=== PATIENT | female | born 1935 | race African-American/Black ===

== ENCOUNTER 2022-07-18 19:17 | Inpatient (IN) | payer BC, MEDICARE ==
[~2022-07-18] VITALS: Ht 162.6 cm; Wt 60.1 kg
[2022-07-18] MEDS: INSULIN REGULAR 100U/100ML PMX 100 ML IV SCH (01:15)
[2022-07-18] MEDS ORDERED: SODIUM CHLORIDE 0.9% 1,000 ML IV ONE ×2 (20:00→22:45)
[2022-07-18 20:25] LABS: HEMATOCRIT. 47.6 % (36.0-48.0); HEMOGLOBIN. 15.2 g/dL (12.0-16.0); MEAN CORPUSCULAR HEMOGLOBIN 31.1 pg (28.0-32.0); MEAN CORPUSCULAR VOLUME 97.4 fL (81.0-99.0); MEAN PLATELET VOLUME 10.7 fl (7.4-10.4); PLATELET 140 x1000/uL (130-400); RED BLOOD CELL COUNT 4.88 mill/uL (4.2-5.4); RED CELL DISTRIBUTION WIDTH 12.6 % (11.6-14.6)
[2022-07-18 20:33] LABS: CHLORIDE 100 mEq/L (98-107)
[2022-07-18 20:47] LABS: BETA HYDROXYBUTYRATE 0.5 mMol/L (0.0-0.3)
[2022-07-18 20:59] LABS: PLATELET ESTIMATE NORMAL
[2022-07-18] MEDS ORDERED: ASPIRIN 325MG EC TABLET PO ONE (21:00)
[2022-07-18] MEDS ORDERED: INSULIN REGULAR (HUMULIN R) UD 100 UNITS/ML SYR SUBCUT ONE (21:00)
[2022-07-18] MEDS ORDERED: ASPIRIN 325MG EC TABLET PO NR (21:15)
[2022-07-18] MEDS ORDERED: INSULIN REGULAR (HUMULIN R) 300UNITS/3ML VIAL SUBCUT NR (21:15)
[2022-07-18] MEDS ORDERED: CEFTRIAXONE 1 G PREMIX 50 ML IV ONE (22:45)
[2022-07-18] MEDS ORDERED: INSULIN REGULAR 100U/100ML PMX 100 ML IV SCH (23:00)
[2022-07-18] MEDS ORDERED: MAGNESIUM/ALUMINUM HYDROXIDE/SIMETHICONE 30ML UDC PO PRN (23:15)
[2022-07-18] MEDS ORDERED: SODIUM CHLORIDE 0.9% 1000ML BAG (SEPSIS BOLUS) IV NR (23:15)
[2022-07-18] MEDS ORDERED: NITROGLYCERIN 0.4MG TABLET SL SL PRN (23:15)
[2022-07-18] MEDS ORDERED: ACETAMINOPHEN 325MG TABLET PO PRN ×2 (23:15)
[2022-07-18] MEDS ORDERED: ZOLPIDEM TARTRATE 5MG TABLET PO PRN (23:15)
[2022-07-18] MEDS ORDERED: ONDANSETRON HCL 4MG/2ML INJ IV PRN (23:15)
[2022-07-18] MEDS ORDERED: TRAMADOL 50MG TABLET PO PRN (23:15)
[2022-07-18] MEDS ORDERED: IPRATROPIUM/ALBUTEROL 0.5-3(2.5)MG/3ML NEB NEB PRN (23:15)
[2022-07-18] MEDS ORDERED: DOCUSATE SODIUM 100MG CAPSULE PO PRN (23:15)
[2022-07-18] MEDS ORDERED: GUAIFENESIN 200MG/10ML SUGAR FREE UDC PO PRN (23:15)
[2022-07-18] MEDS ORDERED: DEXTROSE 50% WATER 50ML SYRINGE IV PRN ×2 (23:15)
[2022-07-18] MEDS ORDERED: CEFTRIAXONE 1 G PREMIX 50 ML IV NR (23:30)
[2022-07-18] MEDS: ENOXAPARIN 30MG/0.3ML SYR SUBCUT SCH (23:30)
[2022-07-18] MEDS: BLOOD SUGAR DIAGNOSTIC STRIP TEST SCH (23:39)
[2022-07-18] MEDS ORDERED: SODIUM CHL 0.9% + KCL 20MEQ/L 1,000 ML IV SCH (23:45)
[2022-07-19] MEDS ORDERED: KCL 10MEQ/50ML PREMIX 50 ML IV ONE
[2022-07-19] MEDS ORDERED: MORPHINE SULFATE 2 MG/ML CPJ (NOT FOR IM USE) IV ONE
[2022-07-19] MEDS: BLOOD SUGAR DIAGNOSTIC STRIP TEST SCH ×24 (00:15→23:16)
[2022-07-19 00:21] LABS: T4 FREE 1.3 ng/dL (0.76-1.46)
[2022-07-19 00:39] LABS: FOLIC ACID (FOLATE) SERUM >20 ng/mL ng/mL (>5.38); VITAMIN B12 SERUM >2000 pg/mL pg/mL (211-911)
[2022-07-19 00:59] LABS: CREATINE KINASE MB FRACTION 5.2 ng/mL (0.5-3.6)
[2022-07-19] MEDS: AZITHROMYCIN 500 MG in DEXT 5% WATER 250 ML IV SCH (02:31)
[2022-07-19 04:53] LABS: HEMATOCRIT. 46.8 % (36.0-48.0); MEAN CORPUSCULAR HEMOGLOBIN 30.8 pg (28.0-32.0); MEAN CORPUSCULAR VOLUME 96.4 fL (81.0-99.0); MEAN PLATELET VOLUME 10.8 fl (7.4-10.4); PLATELET 120 x1000/uL (130-400); RED BLOOD CELL COUNT 4.86 mill/uL (4.2-5.4); RED CELL DISTRIBUTION WIDTH 12.6 % (11.6-14.6)
[2022-07-19 06:23] LABS: CHLORIDE 112 mEq/L (98-107)
[2022-07-19 06:30] LABS: PHOSPHORUS 4.5 mg/dL (2.5-4.9)
[2022-07-19] MEDS: DEXT 5%/0.9% NACL KCL 20MEQ/L 1,000 ML IV SCH ×2 (06:46→15:55)
[2022-07-19] MEDS ORDERED: CEFTRIAXONE 1 G PREMIX 50 ML IV SCH (09:00)
[2022-07-19] MEDS ORDERED: SODIUM CHLORIDE 0.9% 1000ML BAG (SEPSIS BOLUS) IV NR (09:00)
[2022-07-19 09:56] LABS: PLATELET ESTIMATE SLIGHTLY DECREASED
[2022-07-19] MEDS: PANTOPRAZOLE SODIUM 40 MG/VIAL IV SCH (13:06)
[2022-07-19] MEDS: ASPIRIN 325MG EC TABLET PO SCH (13:06)
[2022-07-19 16:18] LABS: CHLORIDE 116 mEq/L (98-107)
[2022-07-19] MEDS ORDERED: POTASSIUM CHLORIDE INJ 40 MEQ in DEXT 5% WATER 250 ML IV NR (21:30)
[2022-07-19] MEDS: INSULIN REGULAR 100U/100ML PMX 100 ML IV SCH (22:44)
[2022-07-19] MEDS: CEFTRIAXONE 1,000 MG in DEXTROSE 5% WATER 50 ML IV SCH (23:00)
[2022-07-20] MEDS: DEXT 5%/0.9% NACL KCL 20MEQ/L 1,000 ML IV SCH ×3 (00:30→10:23)
[2022-07-20] MEDS: BLOOD SUGAR DIAGNOSTIC STRIP TEST SCH ×14 (01:15→21:29)
[2022-07-20] MEDS: AZITHROMYCIN 500 MG in DEXT 5% WATER 250 ML IV SCH ×2 (02:00→23:21)
[2022-07-20] MEDS: ENOXAPARIN 30MG/0.3ML SYR SUBCUT SCH ×2 (02:00→22:41)
[2022-07-20] MEDS: DEXT 5%/0.9% NACL 1,000 ML IV SCH ×4 (03:00→23:22)
[2022-07-20 04:51] LABS: BASOPHILS % 0.4 % (0.0-2.0); HEMATOCRIT. 35.3 % (36.0-48.0); HEMOGLOBIN. 11.9 g/dL (12.0-16.0); LYMPHOCYTES % 7.9 % (20.0-50.0); MEAN CORPUSCULAR HEMOGLOBIN 31.2 pg (28.0-32.0); MEAN CORPUSCULAR VOLUME 92.2 fL (81.0-99.0); MEAN PLATELET VOLUME 10.7 fl (7.4-10.4); MONOCYTES % 3.7 % (2.0-8.0); PLATELET 108 x1000/uL (130-400); RED BLOOD CELL COUNT 3.82 mill/uL (4.2-5.4); RED CELL DISTRIBUTION WIDTH 12.6 % (11.6-14.6)
[2022-07-20] MEDS ORDERED: INSULIN REGULAR 100U/100ML PMX 100 ML IV SCH (08:15)
[2022-07-20] MEDS: ASPIRIN 325MG EC TABLET PO SCH (09:00)
[2022-07-20] MEDS: PANTOPRAZOLE SODIUM 40 MG/VIAL IV SCH (09:00)
[2022-07-20] MEDS ORDERED: DEXTROSE 50% WATER 50ML SYRINGE IV PRN (09:15)
[2022-07-20] MEDS ORDERED: INSULIN GLARGINE 100 UNITS/ML SUBCUT SCH (10:00)
[2022-07-20] MEDS ORDERED: INSULIN LISPRO 100 UNITS/ML SUBCUT SCH (12:00)
[2022-07-20 12:30] VITALS: BP 158/76
[2022-07-20] MEDS: INSULIN LISPRO 100 UNITS/ML SUBCUT SCH ×5 (13:13→21:00)
[2022-07-20 16:00] VITALS: BP 117/50
[2022-07-20] MEDS ORDERED: METF-414 PO (18:30)
[2022-07-20] MEDS ORDERED: AMLO10TA80 PO (18:30)
[2022-07-20] MEDS ORDERED: LIP40 PO (18:30)
[2022-07-20] MEDS ORDERED: MEMA7CAP2 PO (18:30)
[2022-07-20] MEDS ORDERED: BENA40TA91 PO (18:30)
[2022-07-20] MEDS ORDERED: ATEN-42 PO (18:30)
[2022-07-20 20:00] VITALS: BP 139/83
[2022-07-20] MEDS: CEFTRIAXONE 1,000 MG in DEXTROSE 5% WATER 50 ML IV SCH (22:41)
[2022-07-21] VITALS (7 sets, daily range): BP systolic 136–162; BP diastolic 60–86
[2022-07-21] MEDS: CLONIDINE 0.1MG TABLET PO PRN (01:02)
[2022-07-21] MEDS: INSULIN LISPRO 100 UNITS/ML SUBCUT SCH ×7 (06:40→21:00)
[2022-07-21] MEDS: BLOOD SUGAR DIAGNOSTIC STRIP TEST SCH ×4 (06:40→21:27)
[2022-07-21 08:06] LABS: CHLORIDE 115 mEq/L (98-107)
[2022-07-21 08:07] LABS: BASOPHILS % 0.3 % (0.0-2.0); EOSINOPHILS % 0.1 % (0.0-5.0); HEMATOCRIT. 33.9 % (36.0-48.0); HEMOGLOBIN. 11.2 g/dL (12.0-16.0); LYMPHOCYTES % 14.4 % (20.0-50.0); MEAN CORPUSCULAR HEMOGLOBIN 31.8 pg (28.0-32.0); MEAN PLATELET VOLUME 10.9 fl (7.4-10.4); MONOCYTES % 6.3 % (2.0-8.0); NEUTROPHILS % 78.9 % (40.0-76.0); PLATELET 105 x1000/uL (130-400); RED BLOOD CELL COUNT 3.53 mill/uL (4.2-5.4); RED CELL DISTRIBUTION WIDTH 12.7 % (11.6-14.6)
[2022-07-21 08:14] LABS: PHOSPHORUS 1.2 mg/dL (2.5-4.9)
[2022-07-21] MEDS: ASPIRIN 325MG EC TABLET PO SCH (09:05)
[2022-07-21] MEDS: PANTOPRAZOLE SODIUM 40 MG/VIAL IV SCH (09:05)
[2022-07-21] MEDS: INSULIN GLARGINE 100 UNITS/ML SUBCUT SCH (09:09)
[2022-07-21] MEDS: DEXT 5%/0.9% NACL 1,000 ML IV SCH ×2 (11:13→16:51)
[2022-07-21] MEDS ORDERED: NALOXONE HCL 0.4MG/ML VIAL IV PRN (13:00)
[2022-07-21] MEDS: CEFTRIAXONE 1,000 MG in DEXTROSE 5% WATER 50 ML IV SCH (22:20)
[2022-07-21] MEDS: ENOXAPARIN 30MG/0.3ML SYR SUBCUT SCH (22:23)
[2022-07-22] VITALS: BP 141/63
[2022-07-22] MEDS: DEXT 5%/0.9% NACL 1,000 ML IV SCH ×4 (00:25→20:42)
[2022-07-22] MEDS: AZITHROMYCIN 500 MG in DEXT 5% WATER 250 ML IV SCH (00:25)
[2022-07-22 04:00] VITALS: BP 141/72
[2022-07-22] MEDS: INSULIN LISPRO 100 UNITS/ML SUBCUT SCH ×7 (06:18→20:34)
[2022-07-22] MEDS: BLOOD SUGAR DIAGNOSTIC STRIP TEST SCH ×4 (06:18→20:34)
[2022-07-22 07:31] LABS: BASOPHILS % 0.3 % (0.0-2.0); HEMATOCRIT. 33.5 % (36.0-48.0); HEMOGLOBIN. 11.3 g/dL (12.0-16.0); LYMPHOCYTES % 13.2 % (20.0-50.0); MEAN CORPUSCULAR HEMOGLOBIN 31.5 pg (28.0-32.0); MEAN CORPUSCULAR VOLUME 93.3 fL (81.0-99.0); MEAN PLATELET VOLUME 9.8 fl (7.4-10.4); MONOCYTES % 8.8 % (2.0-8.0); NEUTROPHILS % 77.7 % (40.0-76.0); PLATELET 109 x1000/uL (130-400); RED CELL DISTRIBUTION WIDTH 12.5 % (11.6-14.6)
[2022-07-22 07:54] LABS: CHLORIDE 108 mEq/L (98-107)
[2022-07-22 07:59] LABS: PHOSPHORUS 1.6 mg/dL (2.5-4.9)
[2022-07-22 08:00] VITALS: BP 166/92
[2022-07-22] MEDS ORDERED: POTASSIUM CHLORIDE 20MEQ TABLET SR PO NR (09:00)
[2022-07-22] MEDS: CLONIDINE 0.1MG TABLET PO PRN (09:03)
[2022-07-22] MEDS: ASPIRIN 325MG EC TABLET PO SCH (09:03)
[2022-07-22] MEDS: PANTOPRAZOLE SODIUM 40 MG/VIAL IV SCH (09:04)
[2022-07-22] MEDS: INSULIN GLARGINE 100 UNITS/ML SUBCUT SCH (10:00)
[2022-07-22] MEDS ORDERED: MAGNESIUM 2 G PREMIX 50 ML IV NR (10:00)
[2022-07-22] MEDS ORDERED: SODIUM PHOS,M-BASIC-D-BASIC 20 MM in DEXT 5% WATER 243.3333 ML IV NR (10:30)
[2022-07-22 12:00] VITALS: BP 150/82
[2022-07-22 16:00] VITALS: BP 115/81
[2022-07-22 20:00] VITALS: BP 124/82
[2022-07-22] MEDS ORDERED: AZITHROMYCIN 500 MG in DEXT 5% WATER 250 ML IV SCH (21:00)
[2022-07-22] MEDS: CEFTRIAXONE 1,000 MG in DEXTROSE 5% WATER 50 ML IV SCH (21:51)
[2022-07-22] MEDS: ENOXAPARIN 30MG/0.3ML SYR SUBCUT SCH (21:52)
[2022-07-23] VITALS: BP 137/66
[2022-07-23] MEDS: DEXT 5%/0.9% NACL 1,000 ML IV SCH ×3 (03:15→16:35)
[2022-07-23 04:00] VITALS: BP 130/42
[2022-07-23] MEDS: BLOOD SUGAR DIAGNOSTIC STRIP TEST SCH ×4 (06:07→21:26)
[2022-07-23] MEDS: INSULIN LISPRO 100 UNITS/ML SUBCUT SCH ×7 (06:40→21:00)
[2022-07-23 06:42] LABS: BASOPHILS % 0.2 % (0.0-2.0); EOSINOPHILS % 0.1 % (0.0-5.0); HEMATOCRIT. 30.9 % (36.0-48.0); HEMOGLOBIN. 10.4 g/dL (12.0-16.0); LYMPHOCYTES % 16.3 % (20.0-50.0); MEAN CORPUSCULAR HEMOGLOBIN 31.8 pg (28.0-32.0); MEAN PLATELET VOLUME 10.2 fl (7.4-10.4); MONOCYTES % 13.3 % (2.0-8.0); NEUTROPHILS % 70.1 % (40.0-76.0); PLATELET 115 x1000/uL (130-400); RED BLOOD CELL COUNT 3.29 mill/uL (4.2-5.4); RED CELL DISTRIBUTION WIDTH 12.4 % (11.6-14.6)
[2022-07-23 06:59] LABS: CHLORIDE 109 mEq/L (98-107)
[2022-07-23 08:00] VITALS: BP 115/78
[2022-07-23] MEDS: KCL 20MEQ/100ML PREMIX 100 ML IV SCH ×2 (10:00→14:47)
[2022-07-23] MEDS: INSULIN GLARGINE 100 UNITS/ML SUBCUT SCH (10:00)
[2022-07-23] MEDS: PANTOPRAZOLE SODIUM 40 MG/VIAL IV SCH (11:17)
[2022-07-23] MEDS: ASPIRIN 325MG EC TABLET PO SCH (11:17)
[2022-07-23 12:02] VITALS: BP 163/91
[2022-07-23] MEDS: CLONIDINE 0.1MG TABLET PO PRN ×2 (14:47→22:02)
[2022-07-23] MEDS ORDERED: SODIUM PHOS,M-BASIC-D-BASIC 20 MM in DEXT 5% WATER 243.3333 ML IV NR (15:00)
[2022-07-23 16:00] VITALS: BP 142/67
[2022-07-23 20:00] VITALS: BP 166/92
[2022-07-23] MEDS: ENOXAPARIN 30MG/0.3ML SYR SUBCUT SCH (22:01)
[2022-07-24] VITALS: BP 130/76
[2022-07-24] MEDS: CEFTRIAXONE 1,000 MG in DEXTROSE 5% WATER 50 ML IV SCH (00:20)
[2022-07-24] MEDS: DEXT 5%/0.9% NACL 1,000 ML IV SCH ×2 (00:22→06:06)
[2022-07-24 04:00] VITALS: BP 167/90
[2022-07-24] MEDS: CLONIDINE 0.1MG TABLET PO PRN (04:39)
[2022-07-24] MEDS: BLOOD SUGAR DIAGNOSTIC STRIP TEST SCH ×2 (06:03→12:34)
[2022-07-24] MEDS: INSULIN LISPRO 100 UNITS/ML SUBCUT SCH ×4 (06:07→12:33)
[2022-07-24 08:00] VITALS: BP 163/60
[2022-07-24 08:30] LABS: CHLORIDE 109 mEq/L (98-107)
[2022-07-24 08:47] LABS: PHOSPHORUS 3.2 mg/dL (2.5-4.9)
[2022-07-24] MEDS: PANTOPRAZOLE SODIUM 40 MG/VIAL IV SCH (09:03)
[2022-07-24] MEDS: ASPIRIN 325MG EC TABLET PO SCH (09:03)
[2022-07-24] MEDS ORDERED: POTASSIUM CHLORIDE 20MEQ TABLET SR PO SCH (09:15)
[2022-07-24] MEDS ORDERED: LINA5TAB MT (10:05)
[2022-07-24] MEDS ORDERED: GLIP5TAB12 MT (10:05)
[2022-07-24] MEDS ORDERED: AMLODIPINE 10MG TABLET PO SCH (10:15)
[2022-07-24] MEDS ORDERED: MAGNESIUM 2 G PREMIX 50 ML IV NR (11:00)
[2022-07-24 12:00] VITALS: BP 166/71
[2022-07-24] MEDS: INSULIN GLARGINE 100 UNITS/ML SUBCUT SCH (12:32)
== END 2022-07-24 13:55 | disposition home health service (06) | DRG 871 ==
LOC: ER 19:19 → MICUSO 22:39 → EDBEDREQTM 22:45 → EDBEDREQSVC 22:45 → EDBEDREQ 22:45 → SUPCPDRO 23:00 → 7EST 07-20 12:10
PROVIDERS: ADMIT Internal Medicine; ATTEND Internal Medicine
DX: A41.89 Other specified sepsis (principal); E11.10 Type 2 diabetes mellitus with ketoacidosis without coma; E43 Unspecified severe protein-calorie malnutrition; I21.4 Non-ST elevation (NSTEMI) myocardial infarction; N17.0 Acute kidney failure with tubular necrosis; U07.1 COVID-19; J12.82 Pneumonia due to coronavirus disease 2019; G93.41 Metabolic encephalopathy; E11.22 Type 2 diabetes mellitus with diabetic chronic kidney disease; F03.90 Unspecified dementia, unspecified severity, without behavioral disturbance, psychotic disturbance, mood disturbance, and anxiety; N18.9 Chronic kidney disease, unspecified; K52.9 Noninfective gastroenteritis and colitis, unspecified; E86.9 Volume depletion, unspecified; D69.6 Thrombocytopenia, unspecified; E87.6 Hypokalemia; R65.20 Severe sepsis without septic shock; I12.9 Hypertensive chronic kidney disease with stage 1 through stage 4 chronic kidney disease, or unspecified chronic kidney disease; Z79.4 Long term (current) use of insulin; Z90.49 Acquired absence of other specified parts of digestive tract; Z68.22 Body mass index [BMI] 22.0-22.9, adult
CPT/HCPCS: 36415; 71045; 74176; 76770; 80048; 80053; 80061; 82010; 82550; 82553; 82607; 82746; 82962; 83036; 83540; 83550; 83605; 83735; 84100; 84145; 84439; 84443; 84484; 85025; 87426; 87804; 92610; 93005; 93970; 97162; 97166; 99291; C1893; C9113; J0456; J0696; J1650; J1815; J3475; J3480; J3490; J7030; J7042; J7060